=== PATIENT | female | born 1950 | race Caucasian/White ===

== ENCOUNTER 2018-06-24 08:20 | Observation (INO) | payer OTHER ==
[~2018-06-24] VITALS: Ht 124.5 cm; Wt 48.1 kg
[2018-06-24 08:50] VITALS: BP 129/71
[2018-06-24 17:00] VITALS: BP 130/73
[2018-06-24 21:10] VITALS: BP 103/60
[2018-06-25 02:57] VITALS: BP 103/60
[2018-06-25 04:58] VITALS: BP 103/60
[2018-06-25 05:36] VITALS: BP 109/67
[2018-06-25 10:24] VITALS: BP 96/76
== END 2018-06-25 13:01 | disposition home or self-care (01) | DRG 363 ==
LOC: DS 08:20 → MU 08:20 → MA 09:00 → NM 09:00 → EDSTATUS 10:00 → DS 10:00 → OR 12:30 → MU 16:29
PROVIDERS: ADMIT Surgery
PROC: 07B60ZZ Excision of Left Axillary Lymphatic, Open Approach (ICD-10-PCS; principal; 2018-06-24 12:30)
PROC: C71 Nuclear Medicine, Lymphatic and Hematologic System, Planar Nuclear Medicine Imaging (ICD-10-PCS; principal; 2018-06-24 12:30)
PROC: 0HBU0ZZ Excision of Left Breast, Open Approach (ICD-10-PCS; principal; 2018-06-24 12:30)
DX: C50.412 Malignant neoplasm of upper-outer quadrant of left female breast (principal); E03.9 Hypothyroidism, unspecified; E11.9 Type 2 diabetes mellitus without complications; Z17.0 Estrogen receptor positive status [ER+]; J45.909 Unspecified asthma, uncomplicated; E78.5 Hyperlipidemia, unspecified; I10 Essential (primary) hypertension
CPT/HCPCS: 90658; G0378; J0690; J1170; J2270; J2405; J2704; J3010; J3490; J7030; J7120; Q9968